=== PATIENT | female | born 2000 | race Two or more races ===

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

== ENCOUNTER 2024-11-18 09:57 | Outpatient (CLI) | payer BC, SELFPAY ==
--- NOTE | ~2024-11-18 | US_ITS ---
US pelvic complete w TV Ordering provider: oLve Morfin, DO History: . MENORRHAGIA WITH REGULAR CYCLE . Comparison: None. Technique: Transabdominal and endovaginal ultrasound of the pelvis (Doppler ultrasound interrogation techniques used as needed for this exam.) FINDINGS: CERVIX: Normal. UTERUS: Measures 9.8x 4x 3.3 cm in length which is within normal limits and is anteverted. Rounded i soechoic lesion with central hypoechoic area is seen in the uterus which may be a fibroid measuring 2 .7 x 2.5 x 2 centimeters. Follow-up advised. ENDOMETRIUM: Normal in thickness measuring 6.4 mm. No endometrial masses, cysts or fluid. CUL DE SAC: No free fluid. RIGHT OVARY: Normal in size measuring 3.4x 2.4x 2 cm. Normal echotexture. Doppler vascular flow prese nt. LEFT OVARY: Normal in size measuring 3.9x 3.1x 1.3 cm. Normal echotexture. Doppler vascular flow present. ADNEXA: Normal. No mass. IMPRESSION: Rounded areas seen in the left side of the uterus which may be a fibroid. Short-term follow-up advise d. If test is positive. Other differential should be considered. Otherwise, normal pelvic u ltrasound. Reviewed, dictated and finalized at location A. IMPRESSION: Rounded areas seen in the left side of the uterus which may be a fibroid. Short -term follow-up advised. If test is positive. Other differential shou ld be considered. Otherwise, normal pelvic ultrasound.
== END 2024-11-18 09:58 | disposition home or self-care (01) ==
PROVIDERS: PCP Pediatrics; Visit Provider Family Medicine
DX: N92.0 Excessive and frequent menstruation with regular cycle (principal)
CPT/HCPCS: 76830; 76856